=== PATIENT | female | born 2005 | race Two or more races ===

== ENCOUNTER 2023-08-01 15:26 | Emergency (ER) | payer MEDICAID ==
[2023-08-01] MEDS ORDERED: Lidocaine 1% (PF) 30 ML VIAL ONE (16:10)
[2023-08-01] MEDS ORDERED: Acetaminophen 500 MG TAB ONE (16:33)
[2023-08-01] MEDS ORDERED: traMADol HCl 50 MG TAB ONE (17:01)
[2023-08-01] MEDS ORDERED: Boostrix 0.5 ML (Tdap) VIAL (>/=7 yrs of age) ONE (17:08)
== END 2023-08-01 17:20 | disposition home or self-care (01) ==
LOC: CSHERS 15:26
DX: L02.31 Cutaneous abscess of buttock (principal); Z23 Encounter for immunization
CPT/HCPCS: 10060; 90471; 90715; J2001